=== PATIENT | male | born 1950 | race Caucasian/White ===

== ENCOUNTER → 2016-05-27 | Outpatient (CLI) | payer OTHER ==
[~2016-05-27] MED LIST: ALBUTEROL2.5 MG/3 M IH; ATIVAN1 MG GT; BISAC-EVAC10 MG PR; CELEXA20 MG GT; CONSTULOSE10 GM/15 M GT; FERROUS SU220 MG/53 GT; FLEET ENEMA-AD118 ML PR; HYDRALAZINE HCL25 MG GT; HYDROCHLOROTHIA25 MG GT; IPRATROPIU0.2 MG/1 M IH; K-SOL20 MEQ/15 GT; LEVAQUIN750 MG IV; LEVSIN0.125 MG GT; METOCLOPRAMIDE10 MG GT; MILK OF MAGN GT; OMEPRAZOLE20 MG GT; PROMETHAZINE HC25 M1 GT; SEROQUEL100 MG GT; SIMETHICONE80 MG GT; THIAMINE HCL100 MG GT; TRAMADOL HCL50 MG GT
== END ==
LOC: RAD 09:48
DX: R13.10 Dysphagia, unspecified (principal); J96.10 Chronic respiratory failure, unspecified whether with hypoxia or hypercapnia; I10 Essential (primary) hypertension; F07.9 Unspecified personality and behavioral disorder due to known physiological condition
CPT/HCPCS: 74230; 92611 GN; G8996 GN CH; G8997 GN CH; G8998 GN CH